=== PATIENT | male | born 1975 | race African-American/Black ===

== ENCOUNTER 2017-02-12 23:51 | Emergency (ER) | payer OTHER ==
[~2017-02-12] VITALS: Ht 190.5 cm; Wt 88.9 kg
[2017-02-12 23:57] VITALS: BP 123/81
[2017-02-13 00:11] LABS: URINE BILIRUBIN NEGATIVE (Negative); URINE BLOOD NEGATIVE (Negative); URINE COLOR YELLOW; URINE GLUCOSE-RANDOM* NEGATIVE (Negative); URINE KETONES NEGATIVE (Negative); URINE NITRITE NEGATIVE (Negative); URINE PROTEIN (DIPSTICK) TRACE (Negative); URINE SPECIFIC GRAVITY >= 1.030 (1.003-1.035); URINE UROBILINOGEN 0.2 E.U./dl (0.2-1.0)
[2017-02-13] MEDS ORDERED: FLAGYL500 MG PO (00:22)
== END 2017-02-13 00:48 | disposition home or self-care (01) ==
LOC: ER 23:51
PROVIDERS: Emergency Medicine
DX: A64 Unspecified sexually transmitted disease (principal); R30.0 Dysuria; F17.200 Nicotine dependence, unspecified, uncomplicated